=== PATIENT | male | born 1980 | race Caucasian/White ===

== ENCOUNTER → 2020-09-24 | Outpatient (CLI) | payer OTHER ==
--- NOTE | 2020-09-24 17:01 | Diagnostic Imaging Report ---
INDICATION: Left-sided abdominal pain. Patient has history of kidney stone. TIME OF EXAM: 12:21 PM No prior studies are available for comparison. FINDINGS: There appears to be a calculus overlying the tip of the left transverse process of L3 measuring 7 to 8 mm in size. This is suspicious for a proximal left ureteric calculus. No other radiopaque urinary tract calculi are seen. Bowel gas pattern is unremarkable. IMPRESSION: Left abdominal calcification, as described. This may represent a proximal ureteric calculus. If desired, CT urinary tract study could be performed for further characterization. Dictated by: Dictated on workstation # [id number]
== END ==
LOC: RAD FS 12:08
PROVIDERS: ATTEND Urology
DX: R10.9 Unspecified abdominal pain (principal); R19.8 Other specified symptoms and signs involving the digestive system and abdomen; Z87.442 Personal history of urinary calculi
CPT/HCPCS: 74018

== ENCOUNTER 2021-10-29 15:08 | Emergency (ER) | payer OTHER ==
[~2021-10-29] VITALS: Ht 185.5 cm; Wt 112.0 kg
[2021-10-29 15:12] VITALS: BP 167/99
[2021-10-29] MEDS ORDERED: NS IV 1000 ML 1,000 ML IV STA (15:27)
[2021-10-29] MEDS ORDERED: NS IV 1000 ML 1,000 ML ONE (15:28)
[2021-10-29] MEDS ORDERED: KETOROLAC 30 MG/ML VIAL IVP ONE (15:30)
[2021-10-29] MEDS ORDERED: HYDROmorphone 2 MG/ML VIAL (DILAUDID) IV ONE (15:30)
[2021-10-29] MEDS ORDERED: ONDANSETRON 4 MG/2 ML (SDV) Z0FRAN IVP ONE (15:30)
--- NOTE | 2021-10-29 15:36 | ED GU-Male ---
General Chief Complaint: - Reproductive Stated Complaint: RT FLANK PAIN Source: patient Exam Limitations: no limitations History of Present Illness Date Seen by Provider: Oct 29, 2021 Time Seen by Provider: 17:15 Initial Comments 41-year-old male with prior history of kidney stones coming in due to concerns for kidney stone. He typically gets them once a year, and had a lithotripsy done around 13 months ago by an outside provider coming in due to right flank pain. The pain has been going on for about a day, sharp, intermittent, associated with nausea and nonbloody nonbilious vomiting. He had some hydrocodone left over at home which he took 1 and probably vomited it up. Went to urgent care for a shot of Toradol and they referred him to the ER for CT scan. Denies any fever, dysuria, chest pain, shortness of breath, abdominal pain, diarrhea, rash, or any other concerns. He has endorsed some hematuria. Allergies and Home Medications Allergies Coded Allergies: Penicillins (Verified Allergy, Unknown, 10/29/21) Patient Home Medication List Home Medication List Reviewed: Yes Hydrocodone/Acetaminophen (Hydrocodone-Acetamin 5-325 mg) 5 Mg-325 Mg Tablet, 1 TAB PO Q6H PRN for PAIN-SEVERE (8-10) Prescribed by: KATEY WOODS on 10/29/21 1551 Ketorolac Tromethamine (Ketorolac Tromethamine) 10 Mg Tablet, 10 MG PO Q8H Prescribed by: KATEY WOODS on 10/29/21 1550 Ondansetron (Ondansetron Odt) 4 Mg Tab.rapdis, 4 MG PO Q6H PRN for NAUSEA/VOMITING-1ST LINE Prescribed by: KATEY WOODS on 10/29/21 1550 Tamsulosin HCl (Flomax) 0.4 Mg Cap, 0.4 MG PO DAILY Prescribed by: KATEY WOODS on 10/29/21 1550 Review of Systems Review of Systems Constitutional: No fever EENTM: no symptoms reported Respiratory: no symptoms reported Cardiovascular: no symptoms reported Gastrointestinal: no symptoms reported Genitourinary: flank pain Musculoskeletal: no symptoms reported Skin: no symptoms reported Psychiatric/Neurological: No Symptoms Reported Endocrine: No Symptoms Reported Hematologic/Lymphatic: No Symptoms Reported All Other Systemes Reviewed Negative Unless Noted: Yes Past Kxgfoll-Khkklz-Ryziul Hx Patient Social History Tobacco Use?: No Substance use?: No Alcohol Use?: Yes Past Medical History Surgeries: Yes (lithotripsy) Physical Exam Vital Signs Vital Signs - First Documented 10/29/21 15:12 Temp 36.9 Pulse 87 Resp 18 B/P (MAP) 167/99 (121) Pulse Ox 98 O2 Delivery Room Air Capillary Refill : Height, Weight, BMI Height: '" Weight: lbs. oz. kg; BMI Method: General Appearance: WD/WN, mild distress HEENT: PERRL/EOMI, normal ENT inspection, pharynx normal Neck: non-tender, full range of motion, supple, normal inspection Cardiovascular: regular rate, rhythm, no edema, no murmur Respiratory: chest non-tender, lungs clear, normal breath sounds, no re spiratory distress, no accessory muscle use Gastrointestinal: normal bowel sounds, non tender, soft; No distended, No guarding, No rebound Back: normal inspection, no vertebral tenderness, CVA tenderness (R) Extremities: normal range of motion, non-tender, normal inspection, no pedal edema, no calf tenderness, normal capillary refill Neurologic/Psychiatric: no motor/sensory deficits, alert, normal mood/affect Skin: normal color, warm/dry Lymphatic: no adenopathy Progress/Results/Core Measures Suspected Sepsis SIRS Temperature: Pulse: Respiratory Rate: Blood Pressure / Mean: Results/Orders My Orders Orders - KATEY WOODS MD Hydromorphone Injection (Dilaudid Inject (10/29/21 15:30) Ketorolac Injection (Toradol Injection) (10/29/21 15:30) Ondansetron Injection (Zofran Injectio (10/29/21 15:30) Ua Culture If Indicated (10/29/21 15:22) Ct Abdomen/Pelvis Wo (10/29/21 15:22) Ns Iv 1000 Ml (Sodium Chloride 0.9%) (10/29/21 15:27) Ns Iv 1000 Ml (Sodium Chloride 0.9%) (10/29/21 15:28) Medications Given in ED Current Medications Medications Dose Ordered Sig/Antione Route Start Time Stop Time Status Last Admin Dose Admin Ketorolac Tromethamine 15 mg ONCE ONCE IVP 10/29/21 15:30 10/29/21 15:31 DC 10/29/21 15:32 15 MG Ondansetron HCl 4 mg ONCE ONCE IVP 10/29/21 15:30 10/29/21 15:31 DC 10/29/21 15:32 4 MG Vital Signs/I&O 10/29/21 15:12 Temp 36.9 Pulse 87 Resp 18 B/P (MAP) 167/99 (121) Pulse Ox 98 O2 Delivery Room Air Capillary Refill : Progress Note : Progress Note 41-year-old male with above history coming in due to flank pain and concerns for kidney stone since he says this feels similar. ABCs were intact and vitals were stable on presentation. Physical exam with right flank pain. An IV was placed and he was given Toradol for pain control and Zofran for nausea. Offered him morphine, but he says medicines like that make him dizzy so he did not want anything as strong as that. CT with 4 to 5 mm stone on the right with hydronephrosis. Patient given some IV fluids. We will give him medicines to have a trial of passage at home and follow-up with his urologist. We were able to contact the urgent care, and his urinalysis was negative for leukocyte esterase, nitrites, positive for blood, and no concerns for infection. Diagnostic Imaging Diagonstic Imaging: CT (abd/pelvis without) Comments [facility], [place] NAME: [facility] REC#: [id number] PT STATUS: REG ER : 1980 PHYSICIAN: KATEY WOODS MD ADMIT DATE: 10/29/21/ER FS Draft Date of Exam:10/29/21 CT ABDOMEN/PELVIS WO PROCEDURE: CT abdomen and pelvis without contrast. TECHNIQUE: Multiple contiguous axial images were obtained through the abdomen and pelvis without the use of intravenous contrast. Auto Exposure Controls were utilized during the CT exam to meet ALARA standards for radiation dose reduction. INDICATION: Right flank pain. Hematuria. COMPARISON: Abdominal radiograph 09/24/2020. FINDINGS: 0.5 cm renal stone in the mid right ureter. There is also moderate to severe right ureteral pyelocaliectasis. There are a few punctate additional nonobstructing calyceal tip renal stones in both kidneys. No left ureteral stones or hydronephrosis. Calcified granuloma in the left lung base. The liver, gallbladder, pancreas, spleen, adrenals, bladder and appendix are negative. No free intraperitoneal air or fluid. No lymphadenopathy. No evidence of bowel obstruction. No acute osseous findings. IMPRESSION: 0.5 cm renal stone in the mid right ureter results in moderate to severe right hydronephrosis Dictated on workstation # [id number] Dict: 10/29/21 1544 Trans: 10/29/21 1550 CV [id number] Interpreted by: DAVONTE LOPEZ MD Electronically signed by: Departure Impression Primary Impression: Ureterolithiasis Additional Impression: Hydronephrosis Qualified Codes: N13.2 - Hydronephrosis with renal and ureteral calculous obstruction Disposition: HOME, SELF-CARE Condition: Stable Departure-Patient Inst. Decision time for Depature: 16:15 Referrals: YENNIFER MELGAR MD (PCP) Primary Care Physician Patient Instructions: Kidney Stone, Adult ED Add. Discharge Instructions: You do have a kidney stone on the right side that is just over 4 mm. Pain medicine, nausea medicine, and a medicine called tamsulosin were sent to your pharmacy. The tamsulosin will be something to take daily to try to help pass it . You will have both hydrocodone and toradol for pain. Do not mix ibuprofen or naproxen with the toradol but you can take some tylenol as well if you would like. Call your urologist early this week if you continue to have issues to try to have a follow-up appointment. Scripts Tamsulosin HCl (Flomax) 0.4 Mg Cap 0.4 MG PO DAILY for 14 Days, #14 CAP Prov: KATEY WOODS MD 10/29/21 Ondansetron (Ondansetron Odt) 4 Mg Tab.rapdis 4 MG PO Q6H PRN for NAUSEA/VOMITING-1ST LINE for 5 Days, #20 TAB Prov: KATEY WOODS MD 10/29/21 Ketorolac Tromethamine (Ketorolac Tromethamine) 10 Mg Tablet 10 MG PO Q8H for 4 Days, #12 TAB Prov: KATEY WOODS MD 10/29/21 Hydrocodone/Acetaminophen (Hydrocodone-Acetamin 5-325 mg) 5 Mg-325 Mg Tablet 1 TAB PO Q6H PRN for PAIN-SEVERE (8-10) for 3 Days, #12 TAB Prov: KATEY WOODS MD 10/29/21 Work/School Note: Work Release Form Date Seen in the Emergency Department: Oct 29, 2021 Return to Work: Oct 31, 2021 Restrictions: No Restrictions KATEY WOODS MD Oct 29, 2021 15:36
[2021-10-29] MEDS ORDERED: KETO10TA PO (15:50)
[2021-10-29] MEDS ORDERED: ACHD5005 PO (15:50)
[2021-10-29] MEDS ORDERED: ONDA4TAB11 PO (15:50)
[2021-10-29] MEDS ORDERED: TMSL.4C PO (15:50)
--- NOTE | 2021-10-29 15:52 | Diagnostic Imaging Report ---
PROCEDURE: CT abdomen and pelvis without contrast. TECHNIQUE: Multiple contiguous axial images were obtained through the abdomen and pelvis without the use of intravenous contrast. Auto Exposure Controls were utilized during the CT exam to meet ALARA standards for radiation dose reduction. INDICATION: Right flank pain. Hematuria. COMPARISON: Abdominal radiograph 09/24/2020. FINDINGS: 0.5 cm renal stone in the mid right ureter. There is also moderate to severe right ureteral pyelocaliectasis. There are a few punctate additional nonobstructing calyceal tip renal stones in both kidneys. No left ureteral stones or hydronephrosis. Calcified granuloma in the left lung base. The liver, gallbladder, pancreas, spleen, adrenals, bladder and appendix are negative. No free intraperitoneal air or fluid. No lymphadenopathy. No evidence of bowel obstruction. No acute osseous findings. IMPRESSION: 0.5 cm renal stone in the mid right ureter results in moderate to severe right hydronephrosis Dictated by: Dictated on workstation # [id number]
[2021-10-29] MEDS ORDERED: HYDROcodone/APAP 5 MG/325 MG (LORTAB) TAB PO ONE (16:00)
== END 2021-10-29 16:03 | disposition home or self-care (01) ==
LOC: EDUNIT# 15:08 → ER FS 15:09
DX: N13.2 Hydronephrosis with renal and ureteral calculous obstruction (principal); Z98.890 Other specified postprocedural states
CPT/HCPCS: 74176